=== PATIENT | male | born 1965 | race Caucasian/White ===

== ENCOUNTER 2018-11-29 13:32 | Day surgery (SDC) | payer OTHER, SELFPAY ==
--- NOTE | 2018-11-29 | PATH_ITS ---
[facility] Accession Number: [id number] . 01 Material submitted: . PART A: cecum - CECUM COLON POLYP PART B: colon - RIGHT COLON POLYPS PART C: colon - TRANSVERSE COLON POLYPS PART D: colon - DISTAL TRANSVERSE COLON POLYPS PART E: rectum - RECTAL POLYPS AT 15CM . 01 Clinical history: . B: RIGHT COLON POLYPS; 1 SESSILE AND 1 PENDUNCULATED D: SESSILE POLYPS X3;DISTAL TRANSVERSE COLON E: RECTAL POLYPS X3 AT 15CM . 02 Diagnosis: A. Cecum, Polyp, Biopsy: Tubular adenoma. . B. Right Colon, Polyps, Biopsies: Tubular adenoma in three of multiple fragments. Inflammatory polyp in one fragment. . C. Transverse Colon, Polyps, Biopsies: Tubular adenoma in two of four fragments. . D. Distal Transverse Colon, Polyps, Biopsies: Tubular adenomas. . E. Rectum, Polyps at 15 cm, Biopsies: Hyperplastic polyps. [facility]/12/01/2018 . 02 Electronically signed: . Roma Montgomery MD, Pathologist NPI- [id number] . 01 Gross description: . Part A: CECUM COLON POLYP: Received in formalin is 1 fragment(s) of [place], soft tissue measuring 0.5 x 0.3 x 0.3 cm submitted entirely in 1 cassette(s) Part B: RIGHT COLON POLYPS: Received in formalin are multiple fragment(s) of [place], soft tissue measuring 0.8 x 0.6 x 0.3 cm in aggregate submitted entirely in 1 cassette(s) Part C: TRANSVERSE COLON POLYPS: Received in formalin are multiple fragment(s) of [place], soft tissue measuring 0.7 x 0.3 x 0.3 cm in aggregate submitted entirely in 1 cassette(s) Part D: DISTAL TRANSVERSE COLON POLYPS: Received in formalin are multiple fragment(s) of [place], soft tissue measuring 0.9 x 0.8 x 0.3 cm in aggregate submitted entirely in 1 cassette(s) Part E: RECTAL POLYPS AT 15CM: Received in formalin are 3 fragment(s) of [place], soft tissue measuring 0.5 x 0.4 x 0.2 cm to 0.4 x 0.3 x 0.3 cm submitted entirely in 1 cassette(s) /CKI /CKI . 02 Pathologist provided ICD-10: D12.0, D12.3, D12.6 . 02 CPT . 632834, 601868, 818855, [id number], [id number] Performed at: 01 [facility] [address] [place] [address], [place], [place] [id number] MD Koko Curtsi MD Phone: [phone] Performed at: 02 [facility] [address] [place], [place] [id number] MD Roma Montgomery MD Phone: [phone]
[2018-11-29] MEDS: SODIUM CHLORIDE 0.9% 1,000 ML 200 ML IV (13:50)
[2018-11-29 14:09] VITALS: BMI 35.5
[2018-11-29 14:14] VITALS: BP 124/84; PULSE 81; RESP 16; TEMP 36.5; O2SAT 96
--- NOTE | 2018-11-29 14:53 | PM.HP.1 ---
History of Present Illness Date Patient Seen: 11/29/18 Time Patient Seen: 14:54 Chief complaint: [id number] SCREENING COLONOSCOPY Narrative: 53-year-old man presents for 1st ever screening colonoscopy, no personal family history of colorectal cancer or polyps. Tolerated the prep well, no intestinal complaints Patient History Medical History (Updated 11/29/18 @ 14:55 by Orestes Benitez MD) Diabetes mellitus (Acute) Hypertension (Acute) Social History household members: spouse Family & Social History Social History: household members spouse Meds Home Medications Medication Instructions Recorded Confirmed Type atorvastatin 20 mg PO DAILY 11/29/18 11/29/18 History azelastine 2 spray INTRANASAL PRN PRN 11/29/18 11/29/18 History epinephrine [EpiPen 2-Ralf] 0.3 mg IM Q15M PRN 11/29/18 11/29/18 History fenofibrate 160 mg PO DAILY 11/29/18 11/29/18 History loratadine 10 mg PO DAILY 11/29/18 11/29/18 History metformin 500 mg PO QPM 11/29/18 11/29/18 History metoprolol succinate 200 mg PO DAILY 11/29/18 11/29/18 History telmisartan-hydrochlorothiazid 1 tab PO DAILY 11/29/18 11/29/18 History Allergies Allergy/AdvReac Type Severity Reaction Status Date / Time Penicillins AdvReac Intermediate Rash Verified 11/29/18 14:07 bee venom protein (honey bee) AdvReac Anaphylaxis Verified 11/29/18 14:06 Review of Systems Constitutional Constitutional: Denies fever(s) Eyes Eyes: Denies bulging eyes ENT Ears, Nose, Mouth, and Throat: No lip swelling Cardiovascular Cardiovascular: Denies generalize swelling Respiratory Respiratory: Denies stridor Gastrointestinal Gastrointestinal: Denies coffee ground emesis Musculoskeletal Musculoskeletal: Denies loss of height Integumentary/Breasts Skin/Breast: Denies wounds Neurologic Neurologic: Denies abnormal speech and Denies confusion Psychiatric Psychiatric: Denies confusion Endocrine Endocrine: Denies deepening of the voice Hematologic/Lymphatic Hematologic/Lymphatic: Denies lymphadenopathy Allergic/Immunologic Allergic/Immunologic: Denies lip swelling Exam Vital Signs (past 8 hours): - 11/29/18 14:14 Temperature 97.7 F Pulse Rate 81 Respiratory Rate 16 Blood Pressure 124/84 Pulse Oximetry 96 Oxygen Delivery Method Room Air Const General: cooperative and healthy appearing Orientation: alert [facility] Head: normal to inspection Nose: nares normal Mouth: oral mucosae normal and lip normal Eyes Eyelids: eyelids normal Conjunctivae: conjunctivae normal Sclera: sclerae normal Neck Neck: supple and other (No thyromegally) Chest Chest: other (LCTAB , regular respiratory effort) Cardio Rhythm: regular rhythm Heart Sounds: S1 normal, S2 normal, no gallops, no murmurs and no rubs GI Other: Abdomen soft nontender nondistended approximately 2 x 2 cm umbilical hernia, easily abduct reducible Skin General: no rashes or lesions noted Neuro General: alert and awake Psych Appearance: grossly normal Affect: normal affect Assessment & Plan Assessment & Plan narrative: 53-year-old man here for 1st ever screening colonoscopy Risks of procedure including bleeding, , perforation, missed lesion, hypoxia will discuss Patient ready to proceed, all questions answered
--- NOTE | 2018-11-29 14:56 | P.HP_ITS ---
History of Present Illness Date Patient Seen: 11/29/18 Time Patient Seen: 14:54 Chief complaint: [id number] SCREENING COLONOSCOPY Narrative: 53-year-old man presents for 1st ever screening colonoscopy, no personal family history of colorectal cancer or polyps. Tolerated the prep well, no intestinal complaints Patient History Medical History (Updated 11/29/18 @ 14:55 by Orestes Benitez MD) Diabetes mellitus (Acute) Hypertension (Acute) Social History household members: spouse Family & Social History Social History: household members spouse Meds Home Medications Medication Instructions Recorded Confirmed Type atorvastatin 20 mg PO DAILY 11/29/18 11/29/18 History azelastine 2 spray INTRANASAL PRN PRN 11/29/18 11/29/18 History epinephrine [EpiPen 2-Ralf] 0.3 mg IM Q15M PRN 11/29/18 11/29/18 History fenofibrate 160 mg PO DAILY 11/29/18 11/29/18 History loratadine 10 mg PO DAILY 11/29/18 11/29/18 History metformin 500 mg PO QPM 11/29/18 11/29/18 History metoprolol succinate 200 mg PO DAILY 11/29/18 11/29/18 History telmisartan-hydrochlorothiazid 1 tab PO DAILY 11/29/18 11/29/18 History Allergies Allergy/AdvReac Type Severity Reaction Status Date / Time Penicillins AdvReac Intermediate Rash Verified 11/29/18 14:07 bee venom protein (honey bee) AdvReac Anaphylaxis Verified 11/29/18 14:06 Review of Systems Constitutional Constitutional: Denies fever(s) Eyes Eyes: Denies bulging eyes ENT Ears, Nose, Mouth, and Throat: No lip swelling Cardiovascular Cardiovascular: Denies generalize swelling Respiratory Respiratory: Denies stridor Gastrointestinal Gastrointestinal: Denies coffee ground emesis Musculoskeletal Musculoskeletal: Denies loss of height Integumentary/Breasts Skin/Breast: Denies wounds Neurologic Neurologic: Denies abnormal speech and Denies confusion Psychiatric Psychiatric: Denies confusion Endocrine Endocrine: Denies deepening of the voice Hematologic/Lymphatic Hematologic/Lymphatic: Denies lymphadenopathy Allergic/Immunologic Allergic/Immunologic: Denies lip swelling Exam Vital Signs (past 8 hours): - 11/29/18 14:14 Temperature 97.7 F Pulse Rate 81 Respiratory Rate 16 Blood Pressure 124/84 Pulse Oximetry 96 Oxygen Delivery Method Room Air Const General: cooperative and healthy appearing Orientation: alert [facility] [place] Head: normal to inspection Nose: nares normal Mouth: oral mucosae normal and lip normal Eyes Eyelids: eyelids normal Conjunctivae: conjunctivae normal Sclera: sclerae normal Neck Neck: supple and other (No thyromegally) Chest Chest: other (LCTAB , regular respiratory effort) Cardio Rhythm: regular rhythm Heart Sounds: S1 normal, S2 normal, no gallops, no murmurs and no rubs GI Other: Abdomen soft nontender nondistended approximately 2 x 2 cm umbilical hernia, easily abduct reducible Skin General: no rashes or lesions noted Neuro General: alert and awake Psych Appearance: grossly normal Affect: normal affect Assessment & Plan Assessment & Plan narrative: 53-year-old man here for 1st ever screening colonoscopy Risks of procedure including bleeding, , perforation, missed lesion, hypoxia will discuss Patient ready to proceed, all questions answered
[2018-11-29] MEDS: GLUCAGON,HUMAN RECOMBINANT 1 MG/ML VIAL IV (16:05)
[2018-11-29] MEDS: MIDAZOLAM 5 MG/5 ML VIAL IV (16:56)
[2018-11-29] MEDS: fentaNYL 250 MCG/5 ML INJ IV (16:57)
[2018-11-29] MEDS: EPINEPHrine 1 MG/10 ML SYRINGE INJ ×2 (16:59)
[2018-11-29 17:18] VITALS: BP 140/90; PULSE 68; RESP 14; TEMP 36.7; O2SAT 97
[2018-11-29 17:19] VITALS: BP 141/92; PULSE 68; RESP 10; O2SAT 98
--- NOTE | 2018-11-29 17:22 | P.OP.ENDO_ITS ---
Operative Date/Time/Diagnoses Date of procedure: 11/29/18 Time of procedure: 17:09 Pre-op diagnosis: Screening colonoscopy Post-op diagnosis: other (Screening colonoscopy with polypectomy times 10) Procedure & Clinicians Study performed: Screening colonoscopy with polypectomies as below Cecal sessile polyp status post cold biopsy x1 Right colon polyps 1 sessile, 1 pedunculated status post cold biopsy x1, hot sna re x1 Transverse colon polyps all small sessile hot snare x1, cold biopsy x3 Rectal polyps at 5-15cm cold biopsy x 3 Same procedure as scheduled: No (Screening colonoscopy plus polypectomy is as above) Indications: 53-year-old man presents for 1st ever screening colonoscopy no family or personal history of colon polyps or colorectal cancer Surgeon: Orestes Benitez Procedure Notes SCOAP/Timeout: Completed Procedure in detail: Patient was taken to the endoscopy suite, time-out was completed, he was sedated with fentanyl and midazolam with total fentanyl dosing of 175, midazolam 12. Digital rectal exam was performed did not identify any palpable rectal or anal lesions. Anoderm was normal. 160 cm colonoscope was then advanced through the rectum through the colon and eventually to the cecum without much difficulty. The ileocecal valve, appendiceal orifice were identified. Upon slowly withdrawing the colonoscope numerous small polyps were identified each was removed as below Cecal sessile polyp status post cold biopsy x1, Right colon polyps: 1 sessile, 1 pedunculated status post cold biopsy x1, hot snare x1, Transverse colon polyps all small sessile hot snare x1, cold biopsy x3, Rectal polyps at 5-15cm cold biopsy x 3. The right colon sessile polyp was within the nostril and his consequence the ostia was injected with 1- 42618 normal saline and epinephrine submucosally-this lifted the submucosa into more prominent spot and allowed for staring without injury to the underlying colon wall. In addition there was extensive diverticular changes throughout the colon. Moderate diverticular disease on the right and transverse colon. Extensive diverticular disease of the sigmoid colon The colonoscope was retroflexed at the rectum and no additional pathology was identified Prep was adequate Patient tolerated the procedure well Scope withdrawal time: 103 Sedation minutes: 99 Findings: diverticulosis and polyp Specimen(s): other (Cecal polyp right colon polyps, Transverse colon polyps, Distal transverse colon polyps, rectal polyp) Complications: none Impression: Numerous polyps as below -cecal polyp -small sessile -right colon polyp -small pedunculated, small sessile -transverse colon -multiple small sessile -distal transverse colon small sessile -rectal polyps small sessile x3 Moderate right and transverse colon diverticulosis Substantial sigmoid colon diverticulosis Recommendations: Colonscopy in 3 years Plan for aftercare: to pacu and then home Follow up: weeks (1) Disposition: PACU
[2018-11-29 17:25] VITALS: BP 136/96; PULSE 76; RESP 9; O2SAT 69
--- NOTE | 2018-11-29 17:29 | SUR.PHASEI ---
care assumed report recieved from Kenna. quyen
[2018-11-29 17:30] VITALS: BP 146/94; PULSE 74; RESP 10; TEMP 37.3; O2SAT 94
[2018-11-29 17:36] VITALS: BP 144/96; PULSE 74; RESP 12; O2SAT 97
--- NOTE | 2018-11-29 18:09 | SUR.PHASEII ---
states continued mild cramping without increase, denies nausea, abdomen soft non tender to palpation, bowel sounds present. taking oral fluids without increased pain or nausea. up ambulatory in department with some improvment. discharged home after instructions re reviewed with patient and spouse.
== END 2018-11-29 18:05 | disposition home or self-care (01) ==
PROVIDERS: PCP Family Medicine; Visit Provider Surgery
PROC: 0DJD8ZZ Inspection of Lower Intestinal Tract, Via Natural or Artificial Opening Endoscopic (ICD-10-PCS; CPT 45378; principal; 2018-11-29 14:30)
DX: Z12.11 Encounter for screening for malignant neoplasm of colon (principal); K57.30 Diverticulosis of large intestine without perforation or abscess without bleeding; D12.0 Benign neoplasm of cecum; D12.3 Benign neoplasm of transverse colon; D12.8 Benign neoplasm of rectum; E11.9 Type 2 diabetes mellitus without complications; I10 Essential (primary) hypertension; D12.2 Benign neoplasm of ascending colon
CPT/HCPCS: 45385; 45380; 99152; 99153; J0171; J1610; J2250; J3010

== ENCOUNTER → 2019-01-23 19:17 | Outpatient (ROUT) | payer OTHER, SELFPAY | PROVIDERS: PCP Family Medicine; Visit Provider Student in an Organized Health Care Education/Training Program | DX: S91.301A Unspecified open wound, right foot, initial encounter (principal) | CPT/HCPCS: 87070; 87075; 87077; 87147; 87186; 87205 ==

== ENCOUNTER → 2019-04-17 11:20 | Outpatient (CLI) | payer OTHER, SELFPAY ==
--- NOTE | 2019-04-17 | DI.RAD.S_ITS ---
PROCEDURE: XR KNEE LT 3V INDICATIONS: LEFT KNEE PAIN TECHNIQUE: 3 views of the knee were acquired. COMPARISON: None. FINDINGS: Bones: No acute fracture or dislocation. Mild degenerative changes of the patellofemoral compartment as evidenced by osteophyte formation. There is a superior patellar enthesophyte. Soft tissues: There is a small left knee joint effusion. IMPRESSION: Small left knee joint effusion with mild patellofemoral compartment degenerative changes and a superior patellar enthesophyte. No acute fracture or dislocation of the left knee identified. Consider MRI if there is continued clinical concern. Dictated by: Bear Johnson M.D. on 04/17/2019 at 12:48 Approved by: Bear Johnson M.D. on 04/17/2019 at 12:50
== END ==
PROVIDERS: PCP Student in an Organized Health Care Education/Training Program; Visit Provider Student in an Organized Health Care Education/Training Program
DX: M25.562 Pain in left knee (principal); M25.462 Effusion, left knee; M76.9 Unspecified enthesopathy, lower limb, excluding foot
CPT/HCPCS: 73562

== ENCOUNTER → 2019-05-25 06:22 | Outpatient (CLI) | payer OTHER, SELFPAY ==
--- NOTE | 2019-05-25 | DI.MRI.S_ITS ---
PROCEDURE: MR KNEE LT WO CON INDICATIONS: Effusion, unspecified joint TECHNIQUE: Noncontrast sagittal PD fast spin echo and T2 fast spin echo with fat saturation, sagittal 3-D FLASH with fat saturation; coronal T1 spin echo and PD fast spin echo with fat saturation, and axial PD fast spin echo with fat saturation through the knee. COMPARISON: [facility], CR, XR KNEE LT 3V, 04/17/2019, 11:23. FINDINGS: Image quality: Diagnostic. Bones and joint: There is no acute fracture or dislocation. No suspicious osseous lesions are evident. There is a small knee joint effusion with an associated small Frye cyst. Irregularity of the hyaline articular cartilage is noted throughout the knee, most pronounced within the patellofemoral compartment with small moderate size full thickness cartilaginous defects evident and associated degenerative/reactive marrow changes along the patellar facets. The cartilage within the medial and lateral tibiofemoral compartments is largely intact, but noted to be heterogeneous. There may be areas of cartilaginous fissuring within the lateral tibiofemoral compartment. Cruciate ligaments: The anterior and posterior cruciate ligaments are intact. Menisci: There is an oblique tear present involving the body and posterior horn of the medial meniscus that extends from the periphery to the inferior articular surface. A small para meniscal cyst is evident along the posterior horn. No displaced fragments are identified. Grade 2 signal of the lateral meniscus is present. The possibility of a subtle nondisplaced horizontal tear in the periphery is difficult to exclude. Medial structures: The medial collateral ligament is intact. However, there is increased signal about the medial collateral ligament. The semimembranosus tendon is mildly edematous at its insertion. The imaged portions of the pes anserinus tendons are unremarkable. No significant fluid is contained within the pes anserinus bursa. Lateral structures: The popliteal tendon is intact. The lateral collateral ligament proper (fibular collateral ligament) and the proximal tibiofibular ligaments are intact. The distal aspect of the biceps femoris tendon and the iliotibial band are intact. Anterior structures: The quadriceps and patellar tendons are intact. Mild increased signal is identified involving the distal aspect of the quadriceps tendon. Increased signal is evident involving the proximal and distal margins of the patellar tendon. There is moderate prepatellar edema. Mild edema involving the superolateral margin of the infrapatellar fat pad is present. Other: Incidental note is made of a collection of fluid-filled tubular structures along the posterolateral aspect of the distal femur, which likely represents a small collection of venous structures. The venous malformation is difficult to exclude. This is of doubtful clinical significance. IMPRESSION: 1. Mild to moderate degenerative changes of the knee are most pronounced in the patellofemoral compartment. 2. Mild to moderate distal quadriceps and patellar tendinopathy without significant hearing. 3. Oblique tear of the medial meniscus. 4. Questionable horizontal tear without articular surface involvement involving the body of the lateral meniscus. 5. Medial collateral ligament sprain. 6. Mild distal semimembranosus tendinopathy. 7. Small knee joint effusion. 8. Small collection of apparent venous structures along the lateral aspect of the distal femur probably represents a collection of varicose veins. However, a small venous malformation is difficult to exclude. This is a doubtful clinical significance. Dictated by: Gonzales Michele M.D. on 05/25/2019 at 8:33 Approved by: Gonzales Michele M.D. on 05/25/2019 at 8:46
== END ==
PROVIDERS: PCP Student in an Organized Health Care Education/Training Program; Visit Provider Student in an Organized Health Care Education/Training Program
DX: M25.462 Effusion, left knee (principal); S83.242A Other tear of medial meniscus, current injury, left knee, initial encounter; S83.412A Sprain of medial collateral ligament of left knee, initial encounter; M67.962 Unspecified disorder of synovium and tendon, left lower leg
CPT/HCPCS: 73721